=== PATIENT | female | born 1970 | race African-American/Black ===

== ENCOUNTER 2020-03-16 15:52 | Emergency (ER) | payer SELFPAY ==
[~2020-03-16] VITALS: Ht 167.6 cm; Wt 110.5 kg
[2020-03-16 16:06] VITALS: Ht 167.6 cm; Wt 110.5 kg
[2020-03-16] MEDS ORDERED: COZAAR25 MG PO (16:07)
[2020-03-16 16:22] LABS: HEMOGLOBIN 13.8 g/dL (12-16); LYMPHOCYTES 32.2 % (15-50); MCH 27.8 pg (26.0-34.0); MCHC 31.4 g/dL (31.0-37.0); MCV 88.7 fL (80.0-100.0); MEAN PLATELET VOLUME 12.9 fL (7.4-10.4); NEUTROPHILS 62.3 % (40-80); PLATELET COUNT 184 10x3/uL (130-400); RBC 4.96 10x6/uL (4.00-5.40); WBC 10.2 10x3/uL (4.8-10.8)
[2020-03-16 16:36] LABS: CALC OSMOLALITY 275 mosm/kg (275-300); CALCIUM 8.6 mg/dL (8.5-10.1); CARBON DIOXIDE 29.7 mmol/L (21.0-32.0); CHLORIDE - SERUM 103 mmol/L (98-107); CREATININE - SERUM 0.9 mg/dL (0.6-1.3); GLUCOSE 86 mg/dL (74-106); POTASSIUM - SERUM 4.2 mmol/L (3.5-5.1); SODIUM 138 mmol/L (136-145); UREA NITROGEN 16 mg/dL (7-18); eGFR NON AFRICAN AMERICAN 70 mL/min (90-120)
[2020-03-16 16:54] LABS: ALBUMIN 3.7 g/dL (3.4-5.0); ALKALINE PHOSPHATASE 136 U/L (30-120); ALT (SGPT) 20 U/L (10-68); CKMB 0.8 U/L (0.0-3.6); CREATINE KINASE 74 UL (21-215); MAGNESIUM - SERUM 2.2 mg/dL (1.8-2.4); PRO BNP 38 pg/mL (0-125); PROTEIN - SERUM 8.1 g/dL (6.4-8.2); TROPONIN-I < 0.017 ng/mL (0.000-0.060)
[2020-03-16] MEDS ORDERED: DICLOFENAC SODI50 MG PO (17:24)
[2020-03-16 18:21] VITALS: BP 118/87
== END 2020-03-16 18:22 | disposition home or self-care (01) ==
LOC: D.ER 15:52
PROVIDERS: Emergency Medicine
DX: R07.89 Other chest pain (principal); I10 Essential (primary) hypertension

== ENCOUNTER 2020-04-27 07:54 | Emergency (ER) | payer SELFPAY ==
[~2020-04-27] VITALS: Ht 167.6 cm; Wt 110.5 kg
[~2020-04-27 07:54] MED LIST: COZAAR25 MG PO; DICLOFENAC SODI50 MG PO
[2020-04-27 07:59] VITALS: Ht 167.6 cm; Wt 110.5 kg
[2020-04-27] MEDS ORDERED: CLEOCIN HCL300 MG PO (08:04)
[2020-04-27] MEDS ORDERED: IBUPROFEN600 MG PO (08:04)
[2020-04-27 08:57] LABS: BASOPHILS 0.2 % (0-2); HEMATOCRIT 42.6 % (36.0-48.0); HEMOGLOBIN 13.4 g/dL (12-16); IMMATURE GRANULOCYTES 0.2 % (0-5); LYMPHOCYTES 41.6 % (15-50); MCH 28.2 pg (26.0-34.0); MCHC 31.5 g/dL (31.0-37.0); MCV 89.7 fL (80.0-100.0); MEAN PLATELET VOLUME 13.1 fL (7.4-10.4); MONOCYTES 7.3 % (2-11); NEUTROPHILS 47.7 % (40-80); PLATELET COUNT 168 10x3/uL (130-400); RBC 4.75 10x6/uL (4.00-5.40); RDW 13.5 % (11.5-14.5); WBC 4.7 10x3/uL (4.8-10.8)
[2020-04-27] MEDS ORDERED: EPIPEN 2-P0.3 MG/0.3 IM (09:16)
[2020-04-27] MEDS ORDERED: ZPAK PO (09:16)
[2020-04-27] MEDS ORDERED: BENADRYL50 MG PO (09:17)
[2020-04-27] MEDS ORDERED: MEDROL DOSE PACK4 MG PO (09:17)
[2020-04-27 09:20] LABS: CALC OSMOLALITY 280 mosm/kg (275-300); CALCIUM 8.7 mg/dL (8.5-10.1); CARBON DIOXIDE 27.8 mmol/L (21.0-32.0); CHLORIDE - SERUM 106 mmol/L (98-107); CREATININE - SERUM 0.8 mg/dL (0.6-1.3); GLUCOSE 111 mg/dL (74-106); POTASSIUM - SERUM 4.2 mmol/L (3.5-5.1); SODIUM 141 mmol/L (136-145); UREA NITROGEN 9 mg/dL (7-18); eGFR NON AFRICAN AMERICAN 80 mL/min (90-120)
[2020-04-27 09:27] LABS: ALBUMIN 3.5 g/dL (3.4-5.0); ALKALINE PHOSPHATASE 111 U/L (30-120); ALT (SGPT) 11 U/L (10-68); BILIRUBIN - TOTAL 0.37 mg/dL (0.2-1.3); PROTEIN - SERUM 7.8 g/dL (6.4-8.2)
[2020-04-27 10:29] VITALS: BP 155/79
== END 2020-04-27 10:27 | disposition home or self-care (01) ==
LOC: D.ER 07:54
PROVIDERS: Family Medicine
DX: K02.9 Dental caries, unspecified (principal); K08.89 Other specified disorders of teeth and supporting structures; T36.8X5A Adverse effect of other systemic antibiotics, initial encounter; I10 Essential (primary) hypertension

== ENCOUNTER 2020-11-26 20:57 | Emergency (ER) | payer OTHER ==
[~2020-11-26] VITALS: Ht 167.6 cm; Wt 105.2 kg
[~2020-11-26 20:57] MED LIST changes: +BENADRYL50 MG PO; +CLEOCIN HCL300 MG PO; +COZAAR25 MG; +EPIPEN 2-P0.3 MG/0.3 IM; +IBUPROFEN600 MG PO; +MEDROL DOSE PACK4 MG PO; +TOPROL XL25 MG; +XARELTO10 MG; +ZPAK PO
[2020-11-26 21:00] VITALS: Ht 167.6 cm; Wt 105.2 kg
[2020-11-26] MEDS ORDERED: ZOFRAN ODT4 MG/UDTAB PO (21:13)
[2020-11-26 21:46] LABS: BASOPHILS 0.2 % (0-2); EOSINOPHILS 2.3 % (0-7); HEMATOCRIT 40.2 % (36.0-48.0); HEMOGLOBIN 12.8 g/dL (12-16); IMMATURE GRANULOCYTES 0.2 % (0-5); LYMPHOCYTE ABS# 3.31 10x3/uL (1.18-3.74); LYMPHOCYTES 33.4 % (15-50); MCH 27.8 pg (26.0-34.0); MCHC 31.8 g/dL (31.0-37.0); MCV 87.4 fL (80.0-100.0); MEAN PLATELET VOLUME 13.7 fL (7.4-10.4); MONOCYTES 5.3 % (2-11); NEUTROPHILS 58.6 % (40-80); PLATELET COUNT 196 10x3/uL (130-400); RDW 13.5 % (11.5-14.5); WBC 9.9 10x3/uL (4.8-10.8)
[2020-11-26 21:58] LABS: CALC OSMOLALITY 279 mosm/kg (275-300); CALCIUM 8.6 mg/dL (8.5-10.1); CARBON DIOXIDE 26.5 mmol/L (21.0-32.0); CHLORIDE - SERUM 104 mmol/L (98-107); CREATININE - SERUM 0.8 mg/dL (0.6-1.3); GLUCOSE 109 mg/dL (74-106); POTASSIUM - SERUM 3.6 mmol/L (3.5-5.1); SODIUM 140 mmol/L (136-145); UREA NITROGEN 13 mg/dL (7-18); eGFR NON AFRICAN AMERICAN 80 mL/min (90-120)
[2020-11-26 22:04] LABS: ALBUMIN 3.6 g/dL (3.4-5.0); ALKALINE PHOSPHATASE 108 U/L (30-120); ALT (SGPT) 20 U/L (10-68); BILIRUBIN - TOTAL 0.31 mg/dL (0.2-1.3); LIPASE 83 U/L (73-393); PROTEIN - SERUM 7.8 g/dL (6.4-8.2)
[2020-11-26 22:17] LABS: BILIRUBIN NEGATIVE (NEGATIVE); KETONE NEGATIVE (NEGATIVE); NITRITE NEGATIVE (NEGATIVE); UROBILINOGEN NORMAL mg/dL (< 2)
[2020-11-26 22:45] VITALS: BP 164/74
== END 2020-11-26 22:47 | disposition home or self-care (01) ==
LOC: D.ER 20:57
PROVIDERS: Family Medicine
DX: R11.2 Nausea with vomiting, unspecified (principal); R19.7 Diarrhea, unspecified; I10 Essential (primary) hypertension